=== PATIENT | female | born 1990 | race Caucasian/White ===

== ENCOUNTER 2017-07-19 20:15 | Outpatient (CLI) | payer SELFPAY ==
[2017-07-19 21:01] LABS: ADD UMIC YES; UR ASCORBIC ACID NEGATIVE (NEGATIVE); UR BACTERIA FEW /HPF (NONE SEEN); UR BILIRUBIN (Dip) NEGATIVE (NEGATIVE); UR BLOOD (Dip) 1+ mg/dL (NEGATIVE); UR CLARITY CLOUDY (CLEAR); UR COLOR YELLOW (YELLOW); UR GLUCOSE (Dip) NEGATIVE (NEGATIVE); UR KETONES (Dip) TRACE mg/dL (NEGATIVE); UR LEUKOCYTE ESTERASE (Dip) 3+ Leu/ul (NEGATIVE); UR MUCUS FEW /HPF (NONE SEEN); UR NITRITE (Dip) NEGATIVE (NEGATIVE); UR RBC 4 /HPF (0-5); UR SPECIFIC GRAVITY (Dip) 1.014 (1.003-1.030); UR SQUAMOUS EPITHELIAL CELL FEW /HPF (FEW); UR TOTAL PROTEIN (Dip) NEGATIVE (NEGATIVE); UR UROBILINOGEN (Dip) NEGATIVE (NEGATIVE); UR WBC 150 /HPF (0-5)
[2017-07-19] MEDS: ACETAMINOPHEN 500 MG TAB PO (21:10)
[2017-07-19] MEDS: SOD CHLORIDE 0.9% 1,000 ML IV (21:56)
[2017-07-19] MEDS: CEFTRIAXONE 1 GM/50 ML (PMX) 50 ML IVPB (22:08)
== END 2017-07-19 23:57 | disposition home or self-care (01) ==
LOC: OBT 20:15 → L-D 20:17 → OBT 23:57
DX: O26.892 Other specified pregnancy related conditions, second trimester (principal); Z3A.21 21 weeks gestation of pregnancy; R10.30 Lower abdominal pain, unspecified
CPT/HCPCS: 76815; 76817; 81001; 87086; 96360; 96374

== ENCOUNTER 2017-11-08 08:41 | Inpatient (IN) | payer MEDICAID ==
[2017-11-08] MEDS: OXYTOCIN 30 UNITS/LR 500 ML IV ×3 (09:28→14:03)
[2017-11-08] MEDS ORDERED: CARBOPROST 250 MCG INJ IM (09:30)
[2017-11-08] MEDS ORDERED: IBUPROFEN 600 MG TAB PO (09:30)
[2017-11-08] MEDS ORDERED: LIDOCAINE 1% (MPF) 30 ML INJ INJ (09:30)
[2017-11-08] MEDS ORDERED: MISOPROSTOL 200 MCG TAB PR (09:30)
[2017-11-08] MEDS ORDERED: OXYTOCIN 30 UNITS/LR 500 ML IV (09:30)
[2017-11-08] MEDS ORDERED: METHYLERGONOVINE 0.2 MG INJ IM (09:30)
[2017-11-08 09:55] LABS: ADD MAN DIFF? NO
[2017-11-08 09:58] LABS: WHITE BLOOD COUNT 14.7 10^3/ul (4.8-10.8)
[2017-11-08 09:58] LABS: ABNORMAL IP MESSAGE 1; BASOPHIL # 0.1 10^3/ul (0.0-0.1); BASOPHILS % 0.4 % (0.0-2.0); EOSINOPHILS # 0.1 10^3/ul (0.0-0.5); EOSINOPHILS % 0.6 % (0.0-7.0); HEMATOCRIT 36.8 % (37.0-47.0); HEMOGLOBIN 12.1 g/dl (12.0-16.0); LYMPHOCYTES % 27.5 % (15.0-51.0); MEAN CORPUSCULAR HEMOGLOBIN 26.6 pg (29.0-33.0); MEAN CORPUSCULAR HGB CONC 32.9 g/dl (32.0-37.0); MEAN CORPUSCULAR VOLUME 80.9 fl (82.0-101.0); MEAN PLATELET VOLUME 11.3 fl (7.4-10.4); MONOCYTE # 1.8 10^3/ul (0.3-0.9); MONOCYTES % 11.9 % (0.0-11.0); NEUTROPHIL # 8.6 10^3/ul (1.6-7.5); NEUTROPHILS % 58.9 % (39.0-77.0); PLATELET COUNT 315 10^3/UL (140-415); RED BLOOD COUNT 4.55 10^6/ul (4.20-5.40); RED CELL DISTRIBUTION WIDTH 13.3 % (11.5-14.5)
[2017-11-08 09:59] LABS: POSITIVE DIFF @See below
[2017-11-08 10:19] LABS: INR 0.91; PROTIME 12.3 Sec (11.9-14.9)
[2017-11-08 11:17] LABS: HEPATITIS B SURFACE ANTIGEN NEGATIVE (NEGATIVE)
[2017-11-08] MEDS ORDERED: OXYCODONE/ASPIRIN (4.88/325) TAB PO ×2 (12:00)
[2017-11-08] MEDS ORDERED: ACETAMINOPHEN 325 MG TAB PO (12:00)
[2017-11-08] MEDS ORDERED: HYDROCODONE/APAP (5/325) TAB PO ×2 (12:00)
[2017-11-08] MEDS ORDERED: ONDANSETRON 4 MG INJ IV (12:00)
[2017-11-08] MEDS ORDERED: DIBUCAINE 1% 30 GM OINT PR (12:00)
[2017-11-08 12:43] LABS: AMPHETAMINE/METHAMPHETAMINE Negative (NEGATIVE); BARBITURATES Negative (NEGATIVE); BENZODIAZEPINES Negative (NEGATIVE); CANNABINOIDS Negative (NEGATIVE); COCAINE Negative (NEGATIVE); OPIATES Negative (NEGATIVE)
[2017-11-08] MEDS: IBUPROFEN 600 MG TAB PO ×3 (13:00→23:54)
[2017-11-08] MEDS: BENZOCAINE 20% 56 ML SPRAY TOP (13:00)
[2017-11-08] MEDS: WITCH HAZEL/GLYCERIN PAD PR (13:00)
[2017-11-08] MEDS: LANOLIN 7 GM TUBE TOP (13:01)
[2017-11-08 15:25] LABS: RAPID PLASMA REAGIN NONREACTIVE (NR)
[2017-11-08] MEDS: SENNA/DOCUSATE NA (8.6MG/50MG) TAB PO (21:16)
[2017-11-09] MEDS: OXYTOCIN 30 UNITS/LR 500 ML IV (05:22)
[2017-11-09] MEDS ORDERED: WITCH HAZEL/GLYCERIN PAD PR (05:30)
[2017-11-09] MEDS ORDERED: DIBUCAINE 1% 30 GM OINT PR (05:30)
[2017-11-09] MEDS ORDERED: HYDROCODONE/APAP (5/325) TAB PO ×2 (05:30)
[2017-11-09] MEDS ORDERED: ACETAMINOPHEN 325 MG TAB PO (05:30)
[2017-11-09] MEDS ORDERED: OXYCODONE/ASPIRIN (4.88/325) TAB PO ×2 (05:30)
[2017-11-09] MEDS ORDERED: LANOLIN 7 GM TUBE TOP (05:30)
[2017-11-09] MEDS ORDERED: ONDANSETRON 4 MG INJ IV (05:30)
[2017-11-09] MEDS: IBUPROFEN 600 MG TAB PO ×4 (06:00→23:32)
[2017-11-09 08:33] LABS: ADD MAN DIFF? NO
[2017-11-09 08:38] LABS: WHITE BLOOD COUNT 13.8 10^3/ul (4.8-10.8)
[2017-11-09 08:38] LABS: BASOPHIL # 0.1 10^3/ul (0.0-0.1); BASOPHILS % 0.4 % (0.0-2.0); EOSINOPHILS # 0.1 10^3/ul (0.0-0.5); EOSINOPHILS % 0.4 % (0.0-7.0); HEMATOCRIT 32.7 % (37.0-47.0); HEMOGLOBIN 10.6 g/dl (12.0-16.0); LYMPHOCYTES # 2.4 10^3/ul (0.8-2.9); LYMPHOCYTES % 17.2 % (15.0-51.0); MEAN CORPUSCULAR HEMOGLOBIN 26.6 pg (29.0-33.0); MEAN CORPUSCULAR HGB CONC 32.4 g/dl (32.0-37.0); MEAN PLATELET VOLUME 10.9 fl (7.4-10.4); MONOCYTE # 1.2 10^3/ul (0.3-0.9); NEUTROPHILS % 72.3 % (39.0-77.0); PLATELET COUNT 258 10^3/UL (140-415); RED BLOOD COUNT 3.99 10^6/ul (4.20-5.40); RED CELL DISTRIBUTION WIDTH 13.3 % (11.5-14.5)
[2017-11-09] MEDS: SENNA/DOCUSATE NA (8.6MG/50MG) TAB PO ×2 (09:30→21:00)
[2017-11-10] MEDS: IBUPROFEN 600 MG TAB PO ×2 (06:19→12:22)
[2017-11-10] MEDS ORDERED: MEASLES,MUMPS,RUBELLA VACCINE INJ SC* (09:00)
[2017-11-10] MEDS: SENNA/DOCUSATE NA (8.6MG/50MG) TAB PO (09:38)
[2017-11-10] MEDS: BENZOCAINE 20% 56 ML SPRAY TOP (16:01)
== END 2017-11-10 16:15 | disposition home or self-care (01) | DRG 775 ==
LOC: L-D 08:41 → PP1 11:10
PROVIDERS: Obstetrics & Gynecology
PROC: 10E0XZZ Delivery of Products of Conception, External Approach (ICD-10-PCS; principal; 2017-11-08)
PROC: 0HQ9XZZ Repair Perineum Skin, External Approach (ICD-10-PCS; 2017-11-08)
PROC: 4A1HXCZ Monitoring of Products of Conception, Cardiac Rate, External Approach (ICD-10-PCS; 2017-11-08)
DX: O70.0 First degree perineal laceration during delivery (principal); Z3A.37 37 weeks gestation of pregnancy; Z37.0 Single live birth
CPT/HCPCS: 80307; 85025; 85610; 85730; 86592; 86850; 86900; 86901; 87340; 99464